=== PATIENT | male | born 1990 | race African-American/Black ===

== ENCOUNTER 2018-12-25 20:28 | Emergency (ER) | payer OTHER ==
[2018-12-25 20:33] VITALS: BP 149/92
== END 2018-12-25 22:22 | disposition left against medical advice (07) ==
LOC: ED 20:28
DX: Z53.21 Procedure and treatment not carried out due to patient leaving prior to being seen by health care provider (principal)
CPT/HCPCS: 99282

== ENCOUNTER 2018-12-26 01:33 | Emergency (ER) | payer OTHER ==
[2018-12-26] MEDS ORDERED: Albuterol/Ipratropium NEB.SOL* Albuterol 2.5 MG/Ipratropium 0.5 MG 3 ML INH ONE (02:06)
[2018-12-26] MEDS ORDERED: methylPREDNISolone 125 MG* 2 ML VIAL IV ONE (02:07)
[2018-12-26] MEDS ORDERED: Magnesium Sulfate 2 GM IV* 2 GM/50 ML BAG IVPB ONE (02:07)
[2018-12-26] MEDS: Albuterol 2.5 MG/3 ML NEB.SOL* (0.083%) INH SCH ×2 (02:23→02:39)
[2018-12-26 02:48] LABS: ABS Eosinophils 0.5 10^3/ul (0-0.6); ABS Lymphocytes 2.1 10^3/ul (1.0-4.8); ABS Monocytes 0.6 10^3/ul (0-0.8); ABS Neutrophils 2.8 10^3/ul (1.5-7.7); Eosinophil % 8.4 %; Hematocrit 41 % (42-52); Hemoglobin 13.9 g/dL (14.0-18.0); Lymphocyte % 34.5 %; Mean Corpuscular HGB Conc 34 g/dL (31-36); Mean Corpuscular Hemoglobin 31 pg (27-31); Mean Corpuscular Volume 92 fL (80-94); Mean Platelet Volume 9.2 fL (7.4-10.4); Nucleated Red Blood Cells % 0.1; Platelet Count 169 10^3/uL (150-450); Red Blood Count 4.48 10^6 /uL (4.18-5.48); Red Cell Distribution Width 13 % (10-15)
[2018-12-26 03:06] LABS: Albumin 4.7 g/dL (3.2-5.2); Albumin/Globulin Ratio 1.5 (1-3); BUN/Creatinine Ratio 12.4 (8-20); Calcium 9.6 mg/dL (8.6-10.3); EGFR African American 93.5 (>60); EGFR Non-African American 77.3 (>60); Globulin 3.2 g/dL (2-4); Potassium 3.3 mmol/L (3.5-5.0); Total Bilirubin 0.7 mg/dL (0.2-1.0); Total Protein 7.9 g/dL (6.4-8.9)
[2018-12-26] MEDS ORDERED: Potassium Chlor TAB* 20 MEQ TAB.ER PO ONE (03:36)
[2018-12-26] MEDS ORDERED: Albuterol HFA INHALER* 8 gm MDI INH ONE (03:38)
--- NOTE | 2018-12-26 03:38 | ED ---
Asthma - HPI Summary HPI Summary: The pt is a 28 yr old male presenting to [facility] c/o SOB beginning 2 days ago. He reports difficulty breathing, sleeping, and eating but denies any fever or current pain. He takes Albuterol and used his nebulizer 3 times today, which did not alleviate his symptoms. He is a regular smoker and has Hx of asthma. - History of Current Complaint Chief Complaint: EDShortnessOfBreath Stated Complaint: ASTHMA PER PT Time Seen by Provider: 12/26/18 02:02 Hx Obtained From: Patient Onset/Duration: Lasting Days, Still Present Timing: Constant Pain Intensity: 0 Pain Scale Used: 0-10 Numeric Alleviating Symptoms: Nothing Associated Signs and Symptoms: Positive: Shortness of Breath - Allergy/Home Medications Allergies/Adverse Reactions: Allergies Allergy/AdvReac Type Severity Reaction Status Date / Time No Known Allergies Allergy Verified 12/26/18 02:31 Home Medications: Home Medications Albuterol HFA INHALER* 2 inh INH Q4HR PRN 12/26/18 [History Confirmed 12/26/18] PMH/Surg Hx/FS Hx/Imm Hx Endocrine/Hematology History: Denies: Hx Diabetes, Hx Thyroid Disease Cardiovascular History: Denies: Hx Hypertension Respiratory History: Reports: Hx Asthma Denies: Hx Chronic Obstructive Pulmonary Disease (COPD) GI History: Denies: Hx Ulcer Infectious Disease History: No Infectious Disease History: Denies: Hx Clostridium Difficile, Hx Hepatitis, Hx Human Immunodeficiency Virus (HIV), Hx Shingles, Hx Tuberculosis, Traveled Outside the [place] in Last 30 Days - Family History Known Family History: Positive: Respiratory Disease - asthma - Social History Alcohol Use: Weekly Substance Use Type: Reports: Marijuana Smoking Status (MU): Light Every Day Tobacco Smoker Review of Systems Constitutional: Other - positive - difficulty sleeping and eating Negative: Fever Positive: Shortness Of Breath All Other Systems Reviewed And Are Negative: Yes Physical Exam - Summary Physical Exam Summary: VITAL SIGNS: Reviewed. GENERAL: Patient is a well-developed and nourished male who is lying comfortable in the stretcher. Patient is not in any acute respiratory distress. HEAD AND FACE: No signs of trauma. No ecchymosis, hematomas or skull depressions. No sinus tenderness. EYES: PERRLA, EOMI x 2, No injected conjunctiva, no nystagmus. EARS: Hearing grossly intact. Ear canals and tympanic membranes are within normal limits. MOUTH: Oropharynx within normal limits. NECK: Supple, trachea is midline, no adenopathy, no JVD, no carotid bruit, no c- spine tenderness, neck with full ROM CHEST: Symmetric, no tenderness at palpation LUNGS: Expiratory and inspiratory wheezes bilaterally. No crackles. CVS: Regular rate and rhythm, S1 and S2 present, no murmurs or gallops appreciated. ABDOMEN: Soft, non-tender. No signs of distention. No rebound no guarding, and no masses palpated. Bowel sounds are normal. EXTREMITIES: FROM in all major joints, no edema, no cyanosis or clubbing. NEURO: Alert and oriented x 3. No acute neurological deficits. Speech is normal and follows commands. SKIN: Dry and warm Triage Information Reviewed: Yes Vital Signs On Initial Exam: Initial Vitals Temp Pulse Resp BP Pulse Ox 98.7 F 85 18 150/98 98 12/26/18 01:37 12/26/18 01:37 12/26/18 01:37 12/26/18 01:37 12/26/18 01:37 Vital Signs Reviewed: Yes Diagnostics - Vital Signs Vital Signs Temp Pulse Resp BP Pulse Ox 12/26/18 02:39 76 16 100 12/26/18 02:23 62 18 100 12/26/18 02:03 12 12/26/18 01:37 98.7 F 85 18 150/98 98 - Laboratory Lab Results: Lab Results 12/26/18 12/26/18 Range/Units 02:42 02:42 WBC 6.0 (3.5-10.8) 10^3/uL RBC 4.48 (4.18-5.48) 10^6 /uL Hgb 13.9 L (14.0-18.0) g/dL Hct 41 L (42-52) % MCV 92 (80-94) fL MCH 31 (27-31) pg MCHC 34 (31-36) g/dL RDW 13 (10-15) % Plt Count 169 (150-450) 10^3/uL MPV 9.2 (7.4-10.4) fL Neut % (Auto) 46.3 % Lymph % (Auto) 34.5 % [place] % (Auto) 10.0 % Eos % (Auto) 8.4 % Baso % (Auto) 0.8 % Absolute Neuts (auto) 2.8 (1.5-7.7) 10^3/ul Absolute Lymphs (auto) 2.1 (1.0-4.8) 10^3/ul Absolute Monos (auto) 0.6 (0-0.8) 10^3/ul Absolute Eos (auto) 0.5 (0-0.6) 10^3/ul Absolute Basos (auto) 0.0 (0-0.2) 10^3/ul Absolute Nucleated RBC 0.0 10^3/ul Nucleated RBC % 0.1 Sodium 139 (135-145) mmol/L Potassium 3.3 L (3.5-5.0) mmol/L Chloride 105 (101-111) mmol/L Carbon Dioxide 24 (22-32) mmol/L Anion Gap 10 (2-11) mmol/L BUN 14 (6-24) mg/dL Creatinine 1.13 (0.67-1.17) mg/dL Est GFR ( Amer) 93.5 (>60) Est GFR (Non-Af Amer) 77.3 (>60) BUN/Creatinine Ratio 12.4 (8-20) Glucose 103 H (70-100) mg/dL Calcium 9.6 (8.6-10.3) mg/dL Total Bilirubin 0.70 (0.2-1.0) mg/dL AST 29 (13-39) U/L ALT 53 H (7-52) U/L Alkaline Phosphatase 138 H (34-104) U/L Total Protein 7.9 (6.4-8.9) g/dL Albumin 4.7 (3.2-5.2) g/dL Globulin 3.2 (2-4) g/dL Albumin/Globulin Ratio 1.5 (1-3) Result Diagrams: 12/26/18 02:42 12/26/18 02:42 Lab Statement: Any lab studies that have been ordered have been reviewed, and results considered in the medical decision making process. - Radiology CXR Radiology Interpretation Completed By: ED Physician Summary of Radiographic Findings: No acute processes, pending official report. Re-Evaluation - Re-Evaluation First Eval Re-Evaluation Time: 03:33 Change: Improved Comment: His wheezes have improved and is feeling better in general. Asthma Course/Dx - Course Assessment/Plan: The pt is a 28 yr old male presenting to [facility] c/o SOB beginning 2 days ago. He reports difficulty breathing, sleeping, and eating but denies any fever or current pain. He takes Albuterol, uses an inhaler, and used his nebulizer 3 times today, which did not alleviate his symptoms. He is a regular smoker and has Hx of asthma. On physical exam, patient is noted to have bilateral wheezing. CXR reveals no acute processes. Test results with no significant abnormalities expect for Hgb @ 13.9, Hct @ 41, Potassium @ 3.3, Glucose @ 103, ALT @ 53, and Alkaline phosphatase @ 138. In the ED course the patient was given 2.5 mg Ventolin 2.5 mg/3ml Neb.Pierre INH, 2 puffs Ventolin Hfa Inhaler INH, 1 neb duoneb INH, 2 gm in 50 mls Magnesium sulfate @ 50 mls/hr IVPB , 125mg Solu-medrol IV, and 40 meq Klor Con Er Tab PO. The pt was diagnosed with Asthma. Patient was discharged home and advised to follow up with PCP within the 3 days. - Diagnoses Provider Diagnoses: Asthma Discharge - Sign-Out/Discharge Documenting (check all that apply): Patient Departure - Discharged. Patient Received Moderate/Deep Sedation with Procedure: No - Discharge Plan Condition: Stable Disposition: HOME Prescriptions: Albuterol 2.5MG/3ML (0.083%)* [Ventolin 2.5 MG/3 ML NEB.PIERRE*] 2.5 mg INH Q6H PRN #60 neb.pierre PRN Reason: Sob/Wheezing Albuterol HFA INHALER* [Ventolin HFA Inhaler*] 2 puff INH Q6H PRN #1 mdi PRN Reason: Sob/Wheezing predniSONE TAB* [Deltasone TAB*] 50 mg PO DAILY #5 tab Patient Education Materials: Asthma (ED) Referrals: [facility] [Outside] - 3 Days Additional Instructions: Return to the ED if any new or worsening symptoms arise. - Attestation Statements Document Initiated by Scribe: Yes Documenting Scribe: MARIA ANTONIA MILLER Provider For Whom Hardikibe is Documenting (Include Credential): AUSTYN RIDLEY MD Scribe Attestation: MARIA ANTONIA Edwards, scribed for AUSTYN RIDLEY MD on 12/26/18 at 0619. Status of Scribe Document: Ready
[2018-12-26 04:33] VITALS: BP 126/96
== END 2018-12-26 04:35 | disposition home or self-care (01) ==
LOC: ED 01:33
DX: J45.909 Unspecified asthma, uncomplicated (principal); F17.210 Nicotine dependence, cigarettes, uncomplicated
CPT/HCPCS: 36415; 71045; 80053; 85025; 96365; 96375; 99284; A9270-GY; J2930; J3475